=== PATIENT | male | born 1960 | race Caucasian/White ===

== ENCOUNTER 2017-03-27 16:35 | Inpatient (IN) | payer OTHER ==
[2017-03-27 17:04] LABS: #Eosinphils 0.1 thou/uL (0.0-0.7); #Lymphocytes 1.5 thou/uL (1.20-3.40); #Monocytes 1.3 thou/uL (0.11-0.59); #Neutrophils 14.3 thou/uL (1.40-6.50); %Basophils 0.3 % (0.0-1.0); %Eosinophils 0.8 % (0.0-10.0); %Lymphocytes 8.8 % (21.0-51.0); %Monocytes 7.7 % (0.0-10.0); Hematocrit 46.8 % (42.0-52.0); Mean Platelet Volume 6.5 fL (7.4-10.4); Red Blood Cell (RBC) Count 4.97 mill/uL (4.70-6.10); White Blood Cell (WBC) Count 17.3 thou/uL (4.8-10.8)
[2017-03-27] MEDS ORDERED: Nitroglycerin 2% Ointment 1 INCH/1 GM Packet ONE (17:18)
[2017-03-27 17:27] LABS: Troponin I Less than 0.010 ng/mL (< 0.028)
[2017-03-27 17:29] LABS: ALT (SGPT) 23 U/L (8-55); AST (SGOT) 20 U/L (5-34); Alkaline Phosphatase 62 U/L (40-150); Anion Gap 14 mmol/L (10-20); BUN (Urea Nitrogen) 13 mg/dL (8.4-25.7); Bilirubin, Total 0.9 mg/dL (0.2-1.2); CK (CPK) 156 U/L (30-200); Calc. Creatinine Clearance 0 mL/min (70-130); Calcium 9.7 mg/dL (7.8-10.44); Carbon Dioxide 25 mmol/L (22-29); Chloride 100 mmol/L (98-107); Estimated GFR-MDRD Greater than 90; Globulin 2.7 g/dL (2.4-3.5); Lipase Less than 4 U/L (8-78); Protein, Total 7.1 g/dL (6.0-8.3)
--- NOTE | 2017-03-27 17:49 | RAD ---
PORTABLE CHEST ONE VIEW: Date: 03-27-17 Time: 5:20 p.m. History: Chest pain. FINDINGS: Comparison made with exam of 10-21-16. Heart size is normal. The lungs are expanded without focal areas of consolidation, pneumothorax, or pleural effusions. IMPRESSION: No acute process. POS: [facility]
[2017-03-27 18:33] LABS: Lactic Acid - Sepsis 0.8 mmol/L (0.5-2.2)
[2017-03-27] MEDS ORDERED: Piperacillin/Tazobactam 3.375 GM VIAL ONE (19:11)
[2017-03-27] MEDS ORDERED: Sodium Chloride 0.9% 100 ML ONE (19:12)
[2017-03-27 20:52] LABS: Troponin I Less than 0.010 ng/mL (< 0.028)
[2017-03-27 20:54] VITALS: BMI 22.6
[2017-03-27] MEDS ORDERED: Sodium Chloride 0.9% 1,000 ML IV SCH (20:54)
[2017-03-27] MEDS ORDERED: Acetaminophen 325 MG TAB PO PRN (21:29)
[2017-03-27] MEDS ORDERED: Nicotine 14 MG PATCH TD PRN (21:29)
[2017-03-27] MEDS ORDERED: Ondansetron ODT 4 MG TAB PO PRN (21:29)
[2017-03-27] MEDS ORDERED: Famotidine 20 MG TAB PO PRN (21:29)
[2017-03-27] MEDS ORDERED: methylPREDNISolone Sod Succ/PF 125 MG/2 ML VIAL IVP SCH (22:00)
[2017-03-27 23:57] LABS: Troponin I Less than 0.010 ng/mL (< 0.028)
[2017-03-27] MEDS ORDERED: Piperacillin/Tazobactam 3.375 GM in Sodium Chloride 0.9% 100 ML IVPB SCH (23:59)
--- NOTE | 2017-03-28 06:49 | PDOC.FM ---
- Subjective Subjective: Patient states he is doing well this morning, symptoms have improved greatly. He is still coughing up green mucous but his breathing has improved, he has been walking the floor without oxygen and not getting dyspneic. He denies fevers, chills, chest pain, n/v/d. - Objective MAR Reviewed: Yes Vital Signs & Weight: Vital Signs (12 hours) Temp Pulse Resp BP Pulse Ox 03/28/17 05:09 98.3 F 64 18 114/62 98 03/28/17 01:35 63 20 99 03/27/17 22:31 64 20 95 03/27/17 21:29 99 03/27/17 20:51 98.4 F 64 20 97 03/27/17 20:40 98.4 F 63 20 135/68 97 Weight Weight 66.134 kg I&O: 03/26/17 03/27/17 03/28/17 06:59 06:59 06:59 Intake Total 720 Output Total 1200 Balance -480 Result Diagrams: 03/28/17 06:55 03/28/17 06:55 EKG Reviewed by me: Yes Radiology Reviewed by me: Yes <Ehsan Rudolph - Last Filed: 03/28/17 08:48> - Objective Vital Signs & Weight: Vital Signs (12 hours) Temp Pulse Resp BP Pulse Ox 03/28/17 07:40 97.9 F 65 18 114/58 L 96 03/28/17 07:25 97.9 F 65 18 96 03/28/17 06:54 70 14 03/28/17 05:09 98.3 F 64 18 114/62 98 03/28/17 01:35 63 20 99 Weight Weight 145 lb 12.8 oz I&O: 03/27/17 03/28/17 03/29/17 06:59 06:59 06:59 Intake Total 720 Output Total 1200 Balance -480 Result Diagrams: 03/28/17 06:55 03/28/17 06:55 <Tiros Tian - Last Filed: 03/28/17 10:41> Phys Exam - Physical Examination Constitutional: NAD HEENT: moist MMs, sclera anicteric Neck: no JVD, supple, full ROM diffuse soft end expiratory wheezes bilaterally Cardiovascular: RRR, no significant murmur, no rub Gastrointestinal: soft, non-tender, no distention, positive bowel sounds Musculoskeletal: no edema, pulses present Neurological: non-focal, moves all 4 limbs Psychiatric: normal affect, A&O x 3 <Ehsan Rudolph - Last Filed: 03/28/17 08:48> Dx/Plan (1) COPD exacerbation Code(s): J44.1 - CHRONIC OBSTRUCTIVE PULMONARY DISEASE W (ACUTE) EXACERBATION Status: Acute Plan: Negative CXR -increased dyspnea, cough with increased sputum production, here in october with COPD exacerbation -did not get maintenance medications refilled after prior COPD exacerbation -supplemental O2, PRN duonebs, Prednison for 5 days, Cont levaquin that was started in ER (2) Tobacco abuse Code(s): Z72.0 - TOBACCO USE Status: Chronic Plan: Tutoring Assistant cessation (3) GERD (gastroesophageal reflux disease) Code(s): K21.9 - GASTRO-ESOPHAGEAL REFLUX DISEASE WITHOUT ESOPHAGITIS Status: Acute Plan: continue home meds, currently asymptomatic - Plan Plan: Patient ready for discharge today, passed O2 weaning trial. Will be discharged with daily copd meds with f/u to [facility]. <Ehsan Rudolph - Last Filed: 03/28/17 08:48> Attending Addendum - Attending Addendum I personally evaluated the patient and discussed the management with Dr. Rudolph I agree with the History, Examination, Assessment and Plan documented above with any addition or exceptions noted below. Patient is back to baseline after getting Levaquin and steroids. We will send him home with close outpatient followup. CP workup was negative. We believe this was all COPD exacerbation. <Tirso Tian - Last Filed: 03/28/17 10:41>
[2017-03-28 07:13] LABS: #Lymphocytes 0.7 thou/uL (1.20-3.40); #Monocytes 0.1 thou/uL (0.11-0.59); #Neutrophils 10.2 thou/uL (1.40-6.50); %Basophils 0.2 % (0.0-1.0); %Eosinophils 0.1 % (0.0-10.0); %Lymphocytes 6.7 % (21.0-51.0); %Monocytes 0.9 % (0.0-10.0); Hematocrit 49.3 % (42.0-52.0); Mean Platelet Volume 6.7 fL (7.4-10.4); Red Blood Cell (RBC) Count 5.17 mill/uL (4.70-6.10)
[2017-03-28 07:31] LABS: ALT (SGPT) 21 U/L (8-55); AST (SGOT) 15 U/L (5-34); Alkaline Phosphatase 62 U/L (40-150); Anion Gap 12 mmol/L (10-20); BUN (Urea Nitrogen) 11 mg/dL (8.4-25.7); Bilirubin, Total 0.9 mg/dL (0.2-1.2); Calc. Creatinine Clearance 89 mL/min (70-130); Calcium 10.5 mg/dL (7.8-10.44); Carbon Dioxide 29 mmol/L (22-29); Chloride 102 mmol/L (98-107); Estimated GFR-MDRD Greater than 90; Protein, Total 7.5 g/dL (6.0-8.3)
[2017-03-28 07:50] VITALS: TEMP 97.9
[2017-03-28] MEDS ORDERED: predniSONE 20 MG TAB PO SCH (08:00)
[2017-03-28] MEDS ORDERED: FLU VACC QS2017-18 36 mo. & older 0.5 ML SYRINGE IM ONE (09:00)
[2017-03-28] MEDS ORDERED: Prevnar 13-Val Conj/PF 0.5 ML SYRINGE IM ONE (09:00)
--- NOTE | 2017-03-28 12:59 | DIS-2 ---
DATE OF ADMISSION: 03/27/2017 DATE OF DISCHARGE: 03/28/2017 RESIDENT: Ehsan Rudolph M.D. ADMITTING ATTENDING: Esme Mark M.D. DISCHARGE ATTENDING: Tirso Tian M.D. CONSULTATIONS: None. PROCEDURES: Chest x-ray: Impression: No acute process. PRIMARY DIAGNOSIS: Chronic obstructive pulmonary disease exacerbation. SECONDARY DIAGNOSES: 1. Gastroesophageal reflux disease. 2. Tobacco abuse. DISCHARGE MEDICATIONS: 1. Resume home medications. 2. Ventolin HFA inhaler 1 puff INH q.i.d. 3. Albuterol sulfate 1 ampule INH q.i.d. 4. Nitroglycerin. 5. DuoNebs. 6. Zosyn 3.375 grams. 7. Tylenol 650 mg p.o. q.4 hours p.r.n. 8. Famotidine 20 mg p.o. b.i.d. p.r.n. 9. Nicotine 14 mg t.i.d. q.24 hours p.r.n. 10. Prevnar 0.5 mL IM once. 11. Solu-Medrol 125 mg IVP now or once. 12. Flu vaccine 0.5 mL IM once. NEW MEDICATIONS AT HOME: 1. Tessalon 100 mg p.o. t.i.d. p.r.n. 2. Levaquin 750 mg p.o. for 5 days. 3. Prednisone 40 mg p.o. q.a.m. with meals for 5 days. HISTORY OF PRESENT ILLNESS/HOSPITAL COURSE: Zaid Perez is a 57-year-old male with past me dical history of COPD and tobacco abuse who presents with a 1 week history of increasing shortness o f breath and chest discomfort when taking deep breaths, increased sputum production and cough. He w as admitted to the hospital in October for similar symptoms and was discharged with home medications for COPD. He took the medications for a month and then did not follow up with primary care doctor and ran out of his medications, he has not taken them since. One week prior to starting these symptoms, he experienced some viral upper respiratory symptoms that resolved on their own and then the increa sed sputum and cough and difficulty breathing, started after resolution of the upper respiratory sym ptoms. He has been coughing up green mucus. Denies any fevers. He has been taking his albuterol i nhaler which has provided some relief, but does not relieve all the symptoms. The chest pain is wor se when he coughs or when he takes deep breaths. Upon admission to the hospital, he was placed on 2 liters of oxygen and satting at 97%. Vitals are otherwise stable. He was afebrile, blood pressure is 135/68. Chest x-ray was done that showed no acute cardiopulmonary processes, but findings were consistent with COPD. In the ER, he was given vancomycin and Levaquin for suspected pneumonia. Lev aquin was continued for COPD exacerbation. Vancomycin was stopped after the patient was admitted. Patient was also given IV Solu-Medrol as well as DuoNebs in hospital. His symptoms improved much ov ernight and the next morning, the day of discharge on 03/28/2017, the patient stated he was feeling much better. He was weaned off of oxygen, satting 95%-98% on room air. He also had no difficulty w alking around the hospital and walking outside without oxygen. He did not develop any shortness of breath when doing so. The patient was ready for discharge on 03/28/2017 with prescriptions for home medications for COPD. He stated that he would follow up with primary care doctor at [facility] within a week or two for COPD management. DISPOSITION: Guarded. DISCHARGE INSTRUCTIONS: 1. Location: Home. 2. Diet as tolerated. No restrictions. Activity as tolerated. Follow up with Dr. Rudolph in [facility] in 1-2 weeks to discuss COPD management.
[2017-03-28 20:03] VITALS: BP 116/60
--- NOTE | 2017-03-29 01:05 | HP-2 ---
CODE STATUS: FULL. PRIMARY CARE PHYSICIAN: None. ATTENDING PHYSICIAN: Esme Mark M.D. RESIDENT: Sarah Baker DO HISTORIAN: Patient. SPECIALIST: None. CHIEF COMPLAINT: Chest pain. HISTORY OF PRESENT ILLNESS: The patient is a 57-year-old male with a past medical history of COPD, GERD, and multiple prior admissions for COPD exacerbations, who comes in with a chief complaint of c hest pain prior to about 1 week ago, was associated with deep breathing and coughing after recent vi ral URI symptoms such as a sore throat and diarrhea that has since resolved. The patient does repor t some chills, increased sputum production, and cough. The patient does not see a PCP, was seen in 10/2016 for a COPD exacerbation and discharged on medications but did not follow up, and perhaps, no t been taking any medications other than albuterol inhaler which has caused some improvement. He allen s had increased use of his albuterol over the last week. The patient also has wheezing and chest ti ghtness that improved with DuoNebs given in the ED. The patient has no cardiac history. In the ER, he was given DuoNebs, Zosyn, Levaquin, nitroglycerin, and aspirin. PAST MEDICAL HISTORY: 1. COPD. 2. Alcohol abuse. 3. Tobacco abuse. PAST SURGICAL HISTORY: 1. Right hip surgery. 2. Neck surgery. 3. Right leg surgery. ALLERGIES: No known drug allergies. MEDICATIONS: Albuterol inhaler p.r.n. FAMILY HISTORY: No cardiac family history. Dad of liver cancer. SOCIAL HISTORY: The patient used to smoke 2 packs a day, has recently cut back to 1 pack a day, giv ing him an [id number] history. The patient does admit to drinking a 12-pack of beer every day and denies drug use. REVIEW OF SYSTEMS: GENERAL: The patient denies fever. Does report some chills. No weight change. No night sweats. EYES: No vision changes. ENT: Does report sore throat recently and rhinorrhea along with nasal congestion. RESPIRATORY: Does report cough. No congestion. Positive for shortness of breath. CARDIOVASCULAR: Positive for chest pain. No palpitations, edema, or orthopnea. GASTROINTESTINAL: Denies nausea, vomiting, diarrhea, or constipation. Does report some abdominal p ain with eating on occasion. GENITOURINARY: Denies dysuria or polyuria. SKIN: No rashes or lesions. MUSCULOSKELETAL: Denies pain or tenderness. NEUROLOGIC: Denies weakness, numbness, or past seizures. PSYCHIATRIC: Denies anxiety or depression. PHYSICAL EXAMINATION: VITAL SIGNS: Blood pressure is 127/70, pulse 86, respiratory rate 18, T-max 99.2, pulse ox 92% on r oom air. Current weight is 75 kilograms. GENERAL: The patient is alert and oriented x4, in no acute distress and appropriately interactive. EYES: EOMI. Conjunctivae are within normal limits. ENT: Oropharynx within normal limits, poor dentition. There is a diffuse area of leukoplakia on th e right back molar area up into the side wall of the cheek. NECK: Supple without lymphadenopathy. CARDIOVASCULAR: Regular rate and rhythm. No murmurs, 2+ radial pulses. RESPIRATORY: Has increased effort, significant inspiratory and expiratory wheezes in all lung field s. No retractions. SKIN: Warm and dry. ABDOMEN: Soft and nontender. Bowel sounds present. EXTREMITIES: No clubbing, cyanosis, or edema. MUSCULOSKELETAL: Structure within normal limits. NEUROLOGIC: No focal deficits. PSYCHIATRIC: Age appropriate. LABORATORY AND IMAGING DATA: CBC: White blood cell count 17.3, hemoglobin 15.5, hematocrit 46.8, p latelets 271, MCV 94, percent neutrophils 82. Chemistry: Sodium 135, potassium 4.0, chloride 100, carbon dioxide 25, BUN 13, creatinine 0.78, glu cose 88, calcium 9.7, total protein 7.1, albumin 4.4, ALT 20, AST 23, alkaline phosphatase 52, total bilirubin 0.9. Lactic acid 0.8. Lipase 0.4. BNP 24.4. EKG reveals normal sinus rhythm, no ischemic changes. Chest x-ray reveals no acute process but does have hyperinflation of the lungs and flattening of the diaphragms. ASSESSMENT AND PLAN: 1. Chronic obstructive pulmonary disease exacerbation. We will give DuoNebs p.r.n. every 2 hours f or breakthrough shortness of breath. We will continue Levaquin p.o. We will give Solu-Medrol IV x1 and then start prednisone orally x5 days. Oxygen as needed for saturations less than 88%. We will rule out infection with blood and urine culture, but not likely. The patient was given flu vaccine and Prevnar vaccine to update his vaccine records with his underlying lung disease and his current smoking. 2. Medication noncompliance. Encouraged the patient to get a PCP for prescription refills and a cl ose followup. The patient is insured. He reported understanding and understood the importance of f ollowing up. 3. Alcohol abuse. The patient drinks 12 beers a day. Reports no prior withdrawal symptoms. No pr ior seizure activity. Placed the patient on YONI protocol. 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 We will need outpatient follow up and biopsy. 5. Tobacco abuse. Counseled on cessation. DISPOSITION AND LENGTH OF HOSPITAL STAY: 1-2 days. Symptomatic medications will be provided. History and physical exam, as well as management, were discussed with Dr. Esme Mark.
== END 2017-03-28 13:07 | disposition home or self-care (01) | DRG 192 ==
LOC: ERS 16:35 → 2NO 20:29
PROVIDERS: ADMIT Student in an Organized Health Care Education/Training Program; ATTEND Student in an Organized Health Care Education/Training Program
DX: J44.1 Chronic obstructive pulmonary disease with (acute) exacerbation (principal); F10.10 Alcohol abuse, uncomplicated; K21.9 Gastro-esophageal reflux disease without esophagitis; F17.210 Nicotine dependence, cigarettes, uncomplicated; Z91.14 Patient's other noncompliance with medication regimen
CPT/HCPCS: 36415; 71010; 80053; 82550; 82553; 83605; 83690; 83880; 84484; 85025; 87040; 90471; 90670; 90682; 93005; 94640; 96365; 96367; G0008; G0009; J1956; J2543; J2930; J7050; J7506; J7620; Q2036

== ENCOUNTER 2017-07-24 10:35 | Emergency (ER) | payer OTHER ==
[2017-07-24 11:13] LABS: #Basophils 0.1 thou/uL (0.0-0.2); #Eosinphils 0.2 thou/uL (0.0-0.7); #Lymphocytes 2.3 thou/uL (1.20-3.40); #Monocytes 0.6 thou/uL (0.11-0.59); #Neutrophils 4.9 thou/uL (1.40-6.50); %Eosinophils 2.7 % (0.0-10.0); %Lymphocytes 28.3 % (21.0-51.0); %Monocytes 6.8 % (0.0-10.0); %Neutrophils 61.3 % (42.0-75.0); Hemoglobin 16.1 g/dL (14.0-18.0); Mean Corpuscular HGB CONC 33.2 g/dL (32.0-36.0); Mean Corpuscular Hemoglobin 30.9 pg (27.0-31.0); Mean Platelet Volume 6.8 fL (7.4-10.4); Platelet Count 262 thou/uL (130-400); RBC Distribution Width 12.2 % (11.5-14.5); Red Blood Cell (RBC) Count 5.22 mill/uL (4.70-6.10)
[2017-07-24] MEDS ORDERED: methylPREDNISolone Sod Succ/PF 125 MG/2 ML VIAL ONE (11:20)
--- NOTE | 2017-07-24 11:25 | RAD ---
PORTABLE CHEST 1 VIEW: Date: 07/24/17 Time: 1050 hours HISTORY: Chest pain. FINDINGS: Comparison made with exam of 03/27/17. The heart size is normal. The lungs are expanded without focal areas of consolidation, pneumothorax, or pleural effusions. IMPRESSION: No radiographic evidence of acute cardiopulmonary process. POS: [facility]
[2017-07-24 11:35] LABS: ALT (SGPT) 20 U/L (8-55); AST (SGOT) 17 U/L (5-34); Albumin 4.6 g/dL (3.5-5.0); Alkaline Phosphatase 62 U/L (40-150); Anion Gap 11 mmol/L (10-20); BUN (Urea Nitrogen) 16 mg/dL (8.4-25.7); Bilirubin, Total 0.7 mg/dL (0.2-1.2); CK (CPK) 127 U/L (30-200); Calc. Creatinine Clearance 0 mL/min (70-130); Carbon Dioxide 29 mmol/L (22-29); Chloride 100 mmol/L (98-107); Estimated GFR-MDRD 89; Globulin 2.7 g/dL (2.4-3.5); Glucose 106 mg/dL (70-105); Lipase 17 U/L (8-78); Magnesium 1.9 mg/dL (1.6-2.6); Potassium 4.2 mmol/L (3.5-5.1); Protein, Total 7.3 g/dL (6.0-8.3); Sodium 136 mmol/L (136-145)
[2017-07-24] MEDS ORDERED: Albuterol Sulfate 2.5 mg/3 ml Neb ONE (13:45)
--- NOTE | 2017-08-19 17:06 | EKG ---
Test Reason : Blood Pressure : / mmHG Vent. Rate : 069 BPM Atrial Rate : 069 BPM P-R Int : 154 ms QRS Dur : 076 ms QT Int : 396 ms P-R-T Axes : 047 079 075 degrees QTc Int : 424 ms Normal sinus rhythm Normal ECG Confirmed by REYNALDO LÓPEZ ([id number]), visual effects editor ZAIN ARGUELLO ([id number] on 08/19/2017 5:05:37 PM Referred By: Confirmed By:REYNALDO LÓPEZ
== END 2017-07-24 15:15 | disposition home or self-care (01) ==
LOC: ERS 10:35
DX: J44.1 Chronic obstructive pulmonary disease with (acute) exacerbation (principal); K21.9 Gastro-esophageal reflux disease without esophagitis; F17.210 Nicotine dependence, cigarettes, uncomplicated
CPT/HCPCS: 71045; 80053; 82553; 83690; 83735; 84484; 85025; 93005; 94640; 94760; 96374; 99406; J2930; J7611; J7620

== ENCOUNTER 2017-10-14 16:49 | Emergency (ER) | payer OTHER, SELFPAY ==
[2017-10-14 17:10] LABS: #Basophils 0.1 thou/uL (0.0-0.2); #Eosinphils 0.4 thou/uL (0.0-0.7); #Lymphocytes 3.1 thou/uL (1.20-3.40); #Monocytes 0.6 thou/uL (0.11-0.59); %Eosinophils 4.7 % (0.0-10.0); %Lymphocytes 37.8 % (21.0-51.0); %Monocytes 7.3 % (0.0-10.0); %Neutrophils 49.2 % (42.0-75.0); Hemoglobin 14.8 g/dL (14.0-18.0); Mean Corpuscular HGB CONC 34.2 g/dL (32.0-36.0); Mean Corpuscular Hemoglobin 31.4 pg (27.0-31.0); Mean Corpuscular Volume 91.8 fl (80.0-94.0); Platelet Count 277 thou/uL (130-400); RBC Distribution Width 12.6 % (11.5-14.5); Red Blood Cell (RBC) Count 4.71 mill/uL (4.70-6.10); White Blood Cell (WBC) Count 8.1 thou/uL (4.8-10.8)
[2017-10-14 17:34] LABS: ALT (SGPT) 19 U/L (8-55); AST (SGOT) 18 U/L (5-34); Albumin 4.4 g/dL (3.5-5.0); Alkaline Phosphatase 59 U/L (40-150); Anion Gap 14 mmol/L (10-20); BUN (Urea Nitrogen) 9 mg/dL (8.4-25.7); Bilirubin, Total 0.5 mg/dL (0.2-1.2); CK (CPK) 183 U/L (30-200); Calc. Creatinine Clearance 0 mL/min (70-130); Calcium 9.1 mg/dL (7.8-10.44); Carbon Dioxide 22 mmol/L (22-29); Chloride 106 mmol/L (98-107); Estimated GFR-MDRD Greater than 90; Globulin 2.3 g/dL (2.4-3.5); Glucose 76 mg/dL (70-105); Lipase 15 U/L (8-78); Potassium 4.2 mmol/L (3.5-5.1); Protein, Total 6.7 g/dL (6.0-8.3); Sodium 138 mmol/L (136-145)
[2017-10-14 17:43] LABS: CKMB 2.7 ng/mL (0-6.6); Troponin I Less than 0.010 ng/mL (< 0.028)
--- NOTE | 2017-10-14 18:04 | RAD ---
UPRIGHT PORTABLE CHEST ONE VIEW: 10/14/17 HISTORY: 57-year-old male with history of chest pain. COMPARISON: 07/24/17. FINDINGS: Heart size is within normal limits. The lungs are clear. No pneumonia, edema or pleural effusion. Hea led right clavicle fracture. IMPRESSION: No acute intrathoracic disease. Stable from prior study, 07/24/17. POS: [facility]
[2017-10-14] MEDS ORDERED: methylPREDNISolone Sod Succ/PF 125 MG/2 ML VIAL ONE (19:39)
[2017-10-14] MEDS ORDERED: Morphine 4 MG/ML VIAL ONE (19:39)
== END 2017-10-14 20:12 | disposition left against medical advice (07) ==
LOC: ERS 16:49
DX: R07.9 Chest pain, unspecified (principal); K21.9 Gastro-esophageal reflux disease without esophagitis; J45.909 Unspecified asthma, uncomplicated; F17.210 Nicotine dependence, cigarettes, uncomplicated
CPT/HCPCS: 71045; 80053; 82550; 82553; 83690; 84484; 85025; 85379; 93005; 99407; J2270; J2930

== ENCOUNTER 2017-10-24 11:36 | Emergency (ER) | payer OTHER, SELFPAY ==
[2017-10-24 12:07] LABS: #Eosinphils 0.3 thou/uL (0.0-0.7); #Lymphocytes 2.6 thou/uL (1.20-3.40); #Monocytes 0.7 thou/uL (0.11-0.59); #Neutrophils 4.8 thou/uL (1.40-6.50); %Basophils 0.5 % (0.0-1.0); %Eosinophils 3.3 % (0.0-10.0); %Lymphocytes 30.7 % (21.0-51.0); %Monocytes 7.7 % (0.0-10.0); %Neutrophils 57.7 % (42.0-75.0); Hemoglobin 14.9 g/dL (14.0-18.0); Mean Corpuscular HGB CONC 32.8 g/dL (32.0-36.0); Mean Corpuscular Hemoglobin 30.2 pg (27.0-31.0); Mean Corpuscular Volume 91.9 fl (80.0-94.0); Mean Platelet Volume 6.4 fL (7.4-10.4); Platelet Count 272 thou/uL (130-400); RBC Distribution Width 12.6 % (11.5-14.5); Red Blood Cell (RBC) Count 4.93 mill/uL (4.70-6.10); White Blood Cell (WBC) Count 8.4 thou/uL (4.8-10.8)
[2017-10-24 12:29] LABS: CKMB 2.8 ng/mL (0-6.6); Troponin I Less than 0.010 ng/mL (< 0.028)
[2017-10-24 12:32] LABS: ALT (SGPT) 21 U/L (8-55); AST (SGOT) 21 U/L (5-34); Albumin 4.3 g/dL (3.5-5.0); Alkaline Phosphatase 59 U/L (40-150); Anion Gap 11 mmol/L (10-20); BUN (Urea Nitrogen) 16 mg/dL (8.4-25.7); Bilirubin, Total 0.6 mg/dL (0.2-1.2); Calc. Creatinine Clearance 0 mL/min (70-130); Calcium 9.3 mg/dL (7.8-10.44); Carbon Dioxide 23 mmol/L (22-29); Chloride 104 mmol/L (98-107); Estimated GFR-MDRD Greater than 90; Globulin 2.5 g/dL (2.4-3.5); Glucose 98 mg/dL (70-105); Potassium 4.3 mmol/L (3.5-5.1); Protein, Total 6.8 g/dL (6.0-8.3); Sodium 134 mmol/L (136-145)
[2017-10-24] MEDS ORDERED: Water For Inject, Bacteriostat 30 ML ONE (12:41)
[2017-10-24] MEDS ORDERED: methylPREDNISolone Sod Succ/PF 125 MG/2 ML VIAL ONE (12:41)
[2017-10-24] MEDS ORDERED: Magnesium Sulfate 2 GM/100 ML BAG ONE (12:41)
--- NOTE | 2017-10-24 12:45 | RAD ---
ONE VIEW CHEST: HISTORY: Pain. COMPARISON: 10/14/2017 FINDINGS: Normal cardiac silhouette. The pulmonary vessels and hilum are normal. No consolidation or mass. N o pneumothorax. No osseous abnormalities. Remote right clavicle fracture. IMPRESSION: No acute cardiopulmonary process. POS: [facility]
== END 2017-10-24 16:42 | disposition home or self-care (01) ==
LOC: ERS 11:36
DX: J44.1 Chronic obstructive pulmonary disease with (acute) exacerbation (principal); R07.89 Other chest pain; K21.9 Gastro-esophageal reflux disease without esophagitis; F17.210 Nicotine dependence, cigarettes, uncomplicated
CPT/HCPCS: 36415; 71045; 80053; 82553; 84484; 85025; 93005; 94640; 96365; 96375; J2930; J3475; J7620

== ENCOUNTER 2018-01-22 09:34 | Emergency (ER) | payer OTHER ==
[2018-01-22 10:00] LABS: #Basophils 0.1 thou/uL (0.0-0.2); #Eosinphils 0.4 thou/uL (0.0-0.7); #Lymphocytes 2.6 thou/uL (1.20-3.40); #Monocytes 0.6 thou/uL (0.11-0.59); #Neutrophils 6.2 thou/uL (1.40-6.50); %Basophils 0.6 % (0.0-1.0); %Lymphocytes 26.4 % (21.0-51.0); %Monocytes 6.1 % (0.0-10.0); %Neutrophils 62.9 % (42.0-75.0); Mean Corpuscular HGB CONC 34.4 g/dL (32.0-36.0); Mean Corpuscular Hemoglobin 31.5 pg (27.0-31.0); Mean Corpuscular Volume 91.7 fL (78.0-98.0); Mean Platelet Volume 6.5 fL (7.4-10.4); Platelet Count 257 thou/uL (130-400); RBC Distribution Width 12.3 % (11.5-14.5); Red Blood Cell (RBC) Count 5.07 mill/uL (4.70-6.10); White Blood Cell (WBC) Count 9.8 thou/uL (4.8-10.8)
[2018-01-22] MEDS ORDERED: predniSONE 20 MG TAB ONE (10:18)
[2018-01-22] MEDS ORDERED: Lidocaine Viscous Sol 2% 15 ml UD Cup ONE (10:19)
[2018-01-22] MEDS ORDERED: Mag-Al 1200 mg/1200 mg/30 ML UDCUP ONE (10:19)
[2018-01-22] MEDS ORDERED: Albuterol Sulfate 2.5 mg/0.5 ml Neb ONE (10:22)
[2018-01-22 10:25] LABS: ALT (SGPT) 28 U/L (8-55); AST (SGOT) 22 U/L (5-34); Albumin 4.8 g/dL (3.5-5.0); Alkaline Phosphatase 69 U/L (40-150); Anion Gap 13 mmol/L (10-20); BUN (Urea Nitrogen) 13 mg/dL (8.4-25.7); Bilirubin, Total 0.9 mg/dL (0.2-1.2); CK (CPK) 161 U/L (30-200); CKMB 2.8 ng/mL (0-6.6); Calc. Creatinine Clearance 0 mL/min (70-130); Calcium 10.3 mg/dL (7.8-10.44); Carbon Dioxide 26 mmol/L (22-29); Chloride 102 mmol/L (98-107); Estimated GFR-MDRD 89; Globulin 2.6 g/dL (2.4-3.5); Glucose 84 mg/dL (70-105); Potassium 4.4 mmol/L (3.5-5.1); Protein, Total 7.4 g/dL (6.0-8.3); Sodium 137 mmol/L (136-145); Troponin I Less than 0.010 ng/mL (< 0.028)
--- NOTE | 2018-01-22 10:44 | RAD ---
CHEST 1 VIEW: HISTORY: Shortness of breath. COMPARISON: Chest radiograph 10/24/17. FINDINGS: Lungs are clear. No pneumothorax or effusion. Lungs are mildly hyperinflated. Old right midclavicular fracture. No acute osseous abnormality. IMPRESSION: 1. No acute intrathoracic abnormality. 2. Likely obstructive pulmonary disease. POS: [facility]
[2018-01-23 11:34] LABS: pH (Venous) 7.416 (7.35-7.45)
[2018-01-23 11:35] LABS: Base Excess-Venous 2.3 mmol/L (0 (+/- 2.5)); Bicarbonate (HCO3v) 27.3 mmol/L (1.0-85.0); CO2 Tension (PvCO2) 42.4 mmHg (41.0-51.0); Hemoglobin - Calc 15.8 g/dL (12.0-18.0); O2 Tension (PvO2) 42.5 mmHg (35.0-45.0); Potassium 4.1 mmol/L (3.4-4.7); T. Carbon Dioxide 28.6 mmol/L (1.0-85.0); vO2 Saturation-calc 78.6 % (94-98)
[2018-01-23 11:36] LABS: Calcium, Ionized 1.15 mmol/L (1.12-1.32)
== END 2018-01-22 13:00 | disposition home or self-care (01) ==
LOC: ERS 09:34
DX: J44.1 Chronic obstructive pulmonary disease with (acute) exacerbation (principal); K62.5 Hemorrhage of anus and rectum; K21.9 Gastro-esophageal reflux disease without esophagitis; F17.210 Nicotine dependence, cigarettes, uncomplicated
CPT/HCPCS: 71045; 80053; 82274; 82330; 82435; 82550; 82553; 82803; 83690; 84132; 84295; 84484; 85014; 85025; 93005; 94644; J7506; J7611

== ENCOUNTER 2018-03-17 08:20 | Emergency (ER) | payer OTHER ==
[2018-03-17] MEDS ORDERED: Fluorescein Opthalmic Strip ONE (08:27)
== END 2018-03-17 09:04 | disposition home or self-care (01) ==
LOC: ERS 08:20
DX: T15.01XA Foreign body in cornea, right eye, initial encounter (principal); Z71.6 Tobacco abuse counseling; K21.9 Gastro-esophageal reflux disease without esophagitis; J45.909 Unspecified asthma, uncomplicated; F17.210 Nicotine dependence, cigarettes, uncomplicated; Z79.899 Other long term (current) drug therapy
CPT/HCPCS: 65222; 99406

== ENCOUNTER 2018-04-12 12:19 | Emergency (ER) | payer OTHER ==
[2018-04-12] MEDS ORDERED: Azithromycin 250 MG TAB ONE (14:16)
[2018-04-12] MEDS ORDERED: predniSONE 20 MG TAB ONE ×2 (14:16→14:30)
[2018-04-12] MEDS ORDERED: cefTRIAXone\\ROCEPHIN 1 GM VIAL ONE (14:16)
[2018-04-12] MEDS ORDERED: Lidocaine 1% (PF) 30 ML VIAL ONE (14:17)
--- NOTE | 2018-04-12 14:24 | RAD ---
2 VIEWS CHEST: Date: 04/12/18 COMPARISON: 10/21/16. HISTORY: Cough and congestion for 1 week. FINDINGS: Two views of the chest show normal sized cardiomediastinal silhouette. There is no evidence of consol idation, mass, or pleural effusion. The bones are unremarkable. IMPRESSION: No evidence of acute cardiopulmonary disease. POS: [facility]
== END 2018-04-12 15:33 | disposition home or self-care (01) ==
LOC: ERS 12:19
DX: J44.1 Chronic obstructive pulmonary disease with (acute) exacerbation (principal); K21.9 Gastro-esophageal reflux disease without esophagitis; F17.210 Nicotine dependence, cigarettes, uncomplicated; Z79.899 Other long term (current) drug therapy
CPT/HCPCS: 71046; 96372; J0696; J2001; J7506; J7620

== ENCOUNTER 2018-04-13 17:08 | Emergency (ER) | payer OTHER ==
[2018-04-13] MEDS ORDERED: Albuterol Sulfate 2.5 mg/0.5 ml Neb ONE ×2 (18:37)
[2018-04-13] MEDS ORDERED: Albuterol Sulfate 2.5 mg/3 ml Neb ONE ×4 (18:37→20:45)
[2018-04-13 18:52] LABS: #Lymphocytes 1.8 thou/uL (1.20-3.40); #Monocytes 0.6 thou/uL (0.11-0.59); #Neutrophils 7.7 thou/uL (1.40-6.50); %Basophils 0.2 % (0.0-1.0); %Eosinophils 0.1 % (0.0-10.0); %Lymphocytes 17.4 % (21.0-51.0); %Monocytes 5.6 % (0.0-10.0); %Neutrophils 76.6 % (42.0-75.0); Hemoglobin 14.6 g/dL (14.0-18.0); Mean Corpuscular HGB CONC 32.7 g/dL (32.0-36.0); Mean Corpuscular Hemoglobin 30.5 pg (27.0-31.0); Mean Corpuscular Volume 93.5 fL (78.0-98.0); Mean Platelet Volume 6.7 fL (7.4-10.4); Platelet Count 256 thou/uL (130-400); RBC Distribution Width 12.3 % (11.5-14.5); Red Blood Cell (RBC) Count 4.79 mill/uL (4.70-6.10); White Blood Cell (WBC) Count 10.1 thou/uL (4.8-10.8)
[2018-04-13 19:09] LABS: ALT (SGPT) 20 U/L (8-55); AST (SGOT) 25 U/L (5-34); Albumin 4.2 g/dL (3.5-5.0); Alkaline Phosphatase 64 U/L (40-150); Anion Gap 15 mmol/L (10-20); BUN (Urea Nitrogen) 12 mg/dL (8.4-25.7); Bilirubin, Total 0.2 mg/dL (0.2-1.2); CK (CPK) 548 U/L (30-200); Calc. Creatinine Clearance 0 mL/min (70-130); Calcium 9.1 mg/dL (7.8-10.44); Carbon Dioxide 18 mmol/L (22-29); Chloride 100 mmol/L (98-107); Estimated GFR-MDRD Greater than 90; Globulin 2.7 g/dL (2.4-3.5); Glucose 97 mg/dL (70-105); Potassium 3.9 mmol/L (3.5-5.1); Protein, Total 6.9 g/dL (6.0-8.3); Sodium 129 mmol/L (136-145)
[2018-04-13 19:13] LABS: CKMB 2.3 ng/mL (0-6.6); Troponin I Less than 0.010 ng/mL (< 0.028)
--- NOTE | 2018-04-13 20:20 | RAD ---
TWO VIEWS CHEST: 04/13/18 HISTORY: Shortness of breath. PA and lateral views of the chest obtained on 04/13/18. Comparison made with previous exam from 04/12/18. Two views chest demonstrates the lungs to be well aerated. No evidence of active intrathoracic diseas e seen. No evidence of effusions, pneumonia, or pneumothorax seen. Old healed right 9th and 10th rib fractures seen. IMPRESSION: Unremarkable two views chest. POS: [facility]
== END 2018-04-13 21:09 | disposition home or self-care (01) ==
LOC: ERS 17:08
DX: J44.1 Chronic obstructive pulmonary disease with (acute) exacerbation (principal); E87.1 Hypo-osmolality and hyponatremia; K21.9 Gastro-esophageal reflux disease without esophagitis; F17.210 Nicotine dependence, cigarettes, uncomplicated; Z79.899 Other long term (current) drug therapy
CPT/HCPCS: 36415; 71046; 80053; 82550; 82553; 84484; 85025; 93005; 94640; 96360; J7611

== ENCOUNTER 2018-09-18 01:20 | Emergency (ER) | payer OTHER | END 2018-09-18 03:04 | disposition left against medical advice (07) | LOC: ERS 01:20 | DX: R51 Headache (principal); Z71.6 Tobacco abuse counseling; J44.9 Chronic obstructive pulmonary disease, unspecified; K21.9 Gastro-esophageal reflux disease without esophagitis; F17.210 Nicotine dependence, cigarettes, uncomplicated | CPT/HCPCS: 99406 ==

== ENCOUNTER 2020-09-04 16:25 | Emergency (ER) | payer SELFPAY ==
[2020-09-04 17:20] LABS: #Basophils 0.1 thou/uL (0.0-0.2); #Eosinphils 0.5 thou/uL (0.0-0.7); #Lymphocytes 2.8 thou/uL (1.20-3.40); #Monocytes 0.9 thou/uL (0.11-0.59); #Neutrophils 5.5 thou/uL (1.40-6.50); %Basophils 0.6 % (0.0-1.0); %Eosinophils 4.7 % (0.0-10.0); %Lymphocytes 29.1 % (21.0-51.0); %Monocytes 9.2 % (0.0-10.0); %Neutrophils 56.3 % (42.0-75.0); Hemoglobin 14.3 g/dL (14.0-18.0); Mean Corpuscular HGB CONC 34.2 g/dL (32.0-36.0); Mean Corpuscular Hemoglobin 31.9 pg (27.0-31.0); Mean Corpuscular Volume 93.4 fL (78.0-98.0); Mean Platelet Volume 6.5 fL (7.4-10.4); Platelet Count 269 thou/uL (130-400); RBC Distribution Width 12.5 % (11.5-14.5); Red Blood Cell (RBC) Count 4.49 mill/uL (4.70-6.10); White Blood Cell (WBC) Count 9.7 thou/uL (4.8-10.8)
[2020-09-04 17:35] LABS: ALT (SGPT) 25 U/L (8-55); AST (SGOT) 21 U/L (5-34); Albumin 3.9 g/dL (3.5-5.0); Alkaline Phosphatase 73 U/L (40-110); Anion Gap 16 mmol/L (10-20); BUN (Urea Nitrogen) 10 mg/dL (8.4-25.7); Bilirubin, Total 0.3 mg/dL (0.2-1.2); Calc. Creatinine Clearance 0 mL/min (70-130); Calcium 8.8 mg/dL (7.8-10.44); Carbon Dioxide 22 mmol/L (22-29); Chloride 102 mmol/L (98-107); Globulin 2.6 g/dL (2.4-3.5); Glucose 74 mg/dL (70-105); Potassium 3.8 mmol/L (3.5-5.1); Protein, Total 6.5 g/dL (6.0-8.3); Sodium 136 mmol/L (136-145)
== END 2020-09-04 18:34 | disposition home or self-care (01) ==
LOC: ERS 16:25
DX: J44.1 Chronic obstructive pulmonary disease with (acute) exacerbation (principal); K21.9 Gastro-esophageal reflux disease without esophagitis; F17.210 Nicotine dependence, cigarettes, uncomplicated
CPT/HCPCS: 36415; 71045; 80053; 83880; 84484; 85025; 93005

== ENCOUNTER 2022-01-01 11:02 | Emergency (ER) | payer SELFPAY ==
[2022-01-01 11:23] LABS: #Basophils 0.1 thou/uL (0.0-0.2); #Eosinphils 0.3 thou/uL (0.0-0.7); #Lymphocytes 2.7 thou/uL (1.20-3.40); #Monocytes 0.6 thou/uL (0.11-0.59); #Neutrophils 3.9 thou/uL (1.40-6.50); %Basophils 0.8 % (0.0-1.0); %Eosinophils 3.9 % (0.0-10.0); %Lymphocytes 35.7 % (21.0-51.0); %Neutrophils 51.6 % (42.0-75.0); Mean Corpuscular HGB CONC 33.7 g/dL (32.0-36.0); Mean Platelet Volume 6.7 fL (7.4-10.4); Platelet Count 261 thou/uL (130-400); Red Blood Cell (RBC) Count 4.69 mill/uL (4.70-6.10); White Blood Cell (WBC) Count 7.5 thou/uL (4.8-10.8)
[2022-01-01 11:44] LABS: ALT (SGPT) 24 U/L (8-55); AST (SGOT) 20 U/L (5-34); Albumin 4.4 g/dL (3.4-4.8); Alkaline Phosphatase 62 U/L (40-110); Anion Gap 14 mmol/L (10-20); BUN (Urea Nitrogen) 9 mg/dL (8.4-25.7); Bilirubin, Total 0.5 mg/dL (0.2-1.2); Calc. Creatinine Clearance 0 mL/min (70-130); Calcium 9.3 mg/dL (7.8-10.44); Carbon Dioxide 24 mmol/L (23-31); Chloride 102 mmol/L (98-107); Estimated GFR 105; Globulin 2.9 g/dL (2.4-3.5); Glucose 89 mg/dL (80-115); Lipase 47 U/L (8-78); Potassium 4.2 mmol/L (3.5-5.1); Protein, Total 7.3 g/dL (5.8-8.1); Sodium 136 mmol/L (136-145)
[2022-01-01] MEDS ORDERED: Ketorolac Tromethamine 30 MG/ML VIAL ONE (14:27)
[2022-01-01] MEDS ORDERED: Iopamidol-370 76% 500 ML 1 ML ONE (14:32)
[2022-01-01] MEDS ORDERED: Orphenadrine Citrate 60 MG/2 ML VIAL IM SCH (14:45)
== END 2022-01-01 15:22 | disposition home or self-care (01) ==
LOC: ERS 11:02
DX: M54.50 Low back pain, unspecified (principal); J44.9 Chronic obstructive pulmonary disease, unspecified; K21.9 Gastro-esophageal reflux disease without esophagitis; F17.210 Nicotine dependence, cigarettes, uncomplicated; Z79.51 Long term (current) use of inhaled steroids
CPT/HCPCS: 70450; 71045; 71275; 74174; 80053; 83690; 84484; 85025; 93005; 96372; 96374; J1885; J2360; Q9967

== ENCOUNTER 2022-06-09 08:31 | Emergency (ER) | payer SELFPAY ==
[2022-06-09 09:18] LABS: ALT (SGPT) 35 U/L (8-55); AST (SGOT) 39 U/L (5-34); Albumin 4.6 g/dL (3.4-4.8); Alkaline Phosphatase 95 U/L (40-110); Anion Gap 15 mmol/L (10-20); BUN (Urea Nitrogen) 8 mg/dL (8.4-25.7); Bilirubin, Total 0.6 mg/dL (0.2-1.2); Calc. Creatinine Clearance 0 mL/min (70-130); Calcium 9.9 mg/dL (7.8-10.44); Carbon Dioxide 26 mmol/L (23-31); Chloride 95 mmol/L (98-107); Estimated GFR 97; Globulin 3.3 g/dL (2.4-3.5); Glucose 118 mg/dL (80-115); Potassium 4.8 mmol/L (3.5-5.1); Protein, Total 7.9 g/dL (5.8-8.1); Sodium 131 mmol/L (136-145)
[2022-06-09] MEDS ORDERED: Aspirin Chewable 81 MG TAB ONE ×2 (09:18→09:21)
[2022-06-09] MEDS ORDERED: methylPREDNISolone Sod Succ/PF 125 MG/2 ML VIAL ONE (09:18)
[2022-06-09 09:26] LABS: Hemoglobin 17.3 g/dL (14.0-18.0); Mean Corpuscular HGB CONC 32.7 g/dL (32.0-36.0); Mean Corpuscular Hemoglobin 31.1 pg (27.0-31.0); Mean Corpuscular Volume 95.2 fl (78.0-98.0); Platelet Count 263 10x3/uL (130-400); RBC Distribution Width 12.5 % (11.5-14.5); Red Blood Cell (RBC) Count 5.58 mill/uL (4.70-6.10); White Blood Cell (WBC) Count 8.7 10x3/uL (4.8-10.8)
[2022-06-09 09:28] LABS: Bilirubin Negative (Negative); Blood, Urine Negative (Negative); Clarity Clear (Clear); Glucose, Urine (Dipstick) Normal (Negative); Ketone, Urine Trace mg/dL (Negative); Leukocyte Negative Leu/uL (Negative); Nitrite Negative (Negative); Protein, Urine (Dipstick) 10 mg/dL (Neg-Trace); Specific Gravity, Urine 1.018 (1.002-1.036); Urobilinogen 3 mg/dL (Less than 2)
[2022-06-09 09:33] LABS: Band 8 % (5-11); Eosinophils 1 % (0-10); Lymphocytes 17 % (21-51); MDiff Complete? YES; Monocytes 7 % (0-10); Neutrophil 60 % (42-75); Platelet Morphology Comment Appears Adequate; RBC Morphology Normal; Reactive Lymphocytes 7 % (0-10)
[2022-06-09] MEDS ORDERED: Albuterol Sulfate 2.5 mg/0.5 ml Neb ONE (10:26)
[2022-06-09] MEDS ORDERED: Ipratropium Bromide 2.5 ml Neb ONE (10:26)
[2022-06-09 10:44] LABS: SARS-CoV-2 NAA Rapid Test Not Detected (NotDetected)
== END 2022-06-09 12:02 | disposition home or self-care (01) ==
LOC: ERS 08:31
DX: J11.1 Influenza due to unidentified influenza virus with other respiratory manifestations (principal); J44.9 Chronic obstructive pulmonary disease, unspecified; K21.9 Gastro-esophageal reflux disease without esophagitis; Z79.899 Other long term (current) drug therapy; Z20.822 Contact with and (suspected) exposure to COVID-19
CPT/HCPCS: 36415; 71045; 80053; 81003; 83605; 83690; 83880; 84484; 85025; 93005; 96374; J2930; J7611

== ENCOUNTER 2023-04-26 16:15 | Emergency (ER) | payer BC ==
[2023-04-26] MEDS ORDERED: Ketorolac Tromethamine 30 MG/ML VIAL ONE (17:05)
[2023-04-26] MEDS ORDERED: Ondansetron PF 4 MG/2 ML Vial ONE (17:19)
[2023-04-26 18:27] LABS: #Eosinphils 0.2 thou/uL (0.0-0.7); #Monocytes 0.5 thou/uL (0.11-0.59); #Neutrophils 5.1 thou/uL (1.40-6.50); %Basophils 0.5 % (0.0-1.0); %Lymphocytes 26.2 % (21.0-51.0); %Monocytes 6.6 % (0.0-10.0); %Neutrophils 64.1 % (42.0-75.0); Hematocrit 41.8 % (42.0-52.0); Hemoglobin 14.4 g/dL (14.0-18.0); Mean Corpuscular HGB CONC 34.4 g/dL (32.0-36.0); Mean Corpuscular Hemoglobin 30.8 pg (27.0-31.0); Mean Corpuscular Volume 89.5 fl (78.0-98.0); Mean Platelet Volume 9.1 fL (7.4-10.4); Platelet Count 247 10x3/uL (130-400); RBC Distribution Width 14.6 % (11.5-14.5); Red Blood Cell (RBC) Count 4.67 mill/uL (4.70-6.10)
[2023-04-26 18:52] LABS: ALT (SGPT) 28 U/L (8-55); AST (SGOT) 23 U/L (5-34); Albumin 4.3 g/dL (3.4-4.8); Alkaline Phosphatase 66 U/L (40-110); Anion Gap 19 mmol/L (10-20); BUN (Urea Nitrogen) 8 mg/dL (8.4-25.7); Bilirubin, Total 0.3 mg/dL (0.2-1.2); Calc. Creatinine Clearance 0 mL/min (70-130); Calcium 8.5 mg/dL (7.8-10.44); Carbon Dioxide 18 mmol/L (23-31); Chloride 101 mmol/L (98-107); Estimated GFR 105; Globulin 2.2 g/dL (2.4-3.5); Glucose 69 mg/dL (80-115); Protein, Total 6.5 g/dL (5.8-8.1); Sodium 134 mmol/L (136-145)
[2023-04-26 19:18] LABS: Bacteria/HPF None Seen HPF (None Seen); Bilirubin Negative (Negative); Blood, Urine Negative (Negative); CAUTI Indications for Culture Pelvic or flank pain; Clarity Clear (Clear); Glucose, Urine (Dipstick) Normal (Negative); Ketone, Urine Negative (Negative); Leukocyte Negative Leu/uL (Negative); Nitrite Negative (Negative); Protein, Urine (Dipstick) Negative (Neg-Trace); RBC/HPF 0-3 HPF (0-3); Specific Gravity, Urine 1.008 (1.002-1.036); Squamous Epithelial None Seen HPF (0-3); Urobilinogen Normal mg/dL (Less than 2); WBC/HPF None Seen HPF (0-3)
[2023-04-26 19:20] LABS: Urine Culture Reflex No No
== END 2023-04-26 19:44 | disposition home or self-care (01) ==
LOC: ERS 16:15
DX: R10.9 Unspecified abdominal pain (principal); F17.210 Nicotine dependence, cigarettes, uncomplicated
CPT/HCPCS: 36415; 74176; 80053; 81001; 85025; 96374; 96375; J1885; J2405

== ENCOUNTER 2024-07-25 17:48 | Emergency (ER) | payer BC ==
[2024-07-25] MEDS ORDERED: diphenhydrAMINE 25 MG CAP ONE (18:01)
[2024-07-25 18:13] LABS: #Basophils 0.04 10x3/uL (0.0-0.2); %Basophils 0.4 % (0.0-1.0); %Eosinophils 5.5 % (0.0-10.0); %Lymphocytes 20.9 % (21.0-51.0); %Monocytes 14.3 % (0.0-10.0); %Neutrophils 58.7 % (42.0-75.0); Hematocrit 34.3 % (42.0-52.0); Hemoglobin 11.6 g/dL (14.0-18.0); Mean Corpuscular HGB CONC 33.8 g/dL (32.0-36.0); Mean Corpuscular Hemoglobin 28.1 pg (27.0-31.0); Mean Corpuscular Volume 83.1 fL (78.0-98.0); Mean Platelet Volume 8.4 fL (7.4-10.4); Platelet Count 282 10x3/uL (130-400); RBC Distribution Width 16.8 % (11.5-14.5); Red Blood Cell (RBC) Count 4.13 mill/uL (4.70-6.10)
[2024-07-25 18:34] LABS: Anion Gap 13 mmol/L (10-20); BUN (Urea Nitrogen) 7 mg/dL (8.4-25.7); Calc. Creatinine Clearance 0 mL/min (70-130); Calcium 8.6 mg/dL (7.8-10.44); Carbon Dioxide 23 mmol/L (23-31); Chloride 98 mmol/L (98-107); Estimated GFR 102; Glucose 96 mg/dL (80-115); Potassium 3.6 mmol/L (3.5-5.1); Sodium 130 mmol/L (136-145)
== END 2024-07-25 18:40 | disposition home or self-care (01) ==
LOC: ERS 17:48
DX: B86 Scabies (principal); J44.89 Other specified chronic obstructive pulmonary disease; F17.210 Nicotine dependence, cigarettes, uncomplicated; Z79.51 Long term (current) use of inhaled steroids
CPT/HCPCS: 12011; 80048; 85025; 93005; 99284